=== PATIENT | female | born 1985 | race American Indian/Alaskan Native ===

== ENCOUNTER 2017-10-15 23:09 | Emergency (ER) | payer SELFPAY ==
[2017-10-16 00:09] VITALS: BP 116/79
== END 2017-10-16 02:08 | disposition left against medical advice (07) ==
LOC: ED 23:09
DX: M79.644 Pain in right finger(s) (principal); Z53.21 Procedure and treatment not carried out due to patient leaving prior to being seen by health care provider

== ENCOUNTER 2017-10-16 11:51 | Emergency (ER) | payer OTHER ==
[2017-10-16 12:27] VITALS: BP 127/70
--- NOTE | 2017-10-16 12:43 | Emergency Department Report ---
- General Chief Complaint: Laceration/Recheck/Suture Stated Complaint: RIGHT FINGER LACERATION Time Seen by Provider: 10/16/17 12:42 Source: patient, family Mode of arrival: Ambulatory Limitations: No Limitations - History of Present Illness Initial Comments: Patient here reports that she has cuts to her fingers on right hand to right fifth finger and right index finger. She said this is accidental and happened last night at 10:30 PM. She is reporting pain that is achy and sometimes throbbing at 6 out of 10. She says she did not take any medication she just kept the area clean. She says that there was a lot of bleeding at first but she said the bleeding has stopped. She denies any numbness or tingling to her right upper extremities and denies any radiation of pain proximally. Patient says she went to the emergency room when it happened but she the wait was too long so she left at 3 AM in the morning. Denies any fever or chills. -: Last night Time: 22:30 Extremity Location: Right: Hand (fifth finger and index finger lacerations) Place: home Patient Tetanus UTD: Yes Context: accidental Associated Symptoms: pain. denies: loss of feeling/numbness, suspect foreign body present, unable to move injured part, weakness followed by dizziness, nausea/vomiting, fever Treatments Prior to Arrival: bandage - Related Data Previous Rx's Medication Instructions Recorded Last Taken Type Bacitracin Zinc Oint [Antibiotic 20 applic TP BID 7 Days #1 tube 10/16/17 Unknown Rx Oint] Cephalexin [Keflex] 500 mg PO Q8HR 7 Days #21 cap 10/16/17 Unknown Rx Ibuprofen [Motrin] 600 mg PO Q8H PRN 5 Days #15 tablet 10/16/17 Unknown Rx Allergies Allergy/AdvReac Type Severity Reaction Status Date / Time latex Allergy Hives Verified 10/16/17 12:22 ED Review of Systems ROS: Stated complaint: RIGHT FINGER LACERATION Other details as noted in HPI Comment: All other systems reviewed and negative Constitutional: no symptoms reported ENT: denies: throat pain, congestion Respiratory: no symptoms reported Cardiovascular: denies: chest pain, palpitations, dyspnea on exertion, edema, syncope, paroxysmal nocturnal dyspnea, other Gastrointestinal: denies: abdominal pain, nausea, vomiting, diarrhea, constipation, hematemesis, melena, hematochezia Musculoskeletal: denies: back pain, arthralgia, myalgia Skin: other (lacerations to fingers of right hand) Neurological: denies: headache, weakness, numbness, paresthesias, confusion, abnormal gait, vertigo ED Past Medical Hx - Past Medical History Previous Medical History?: No - Surgical History Past Surgical History?: Yes Additional Surgical History: laporoscopy - Family History Family history: no significant - Social History Smoking Status: Current Every Day Smoker Substance Use Type: Alcohol, Marijuana - Medications Home Medications: Home Medications Medication Instructions Recorded Confirmed Last Taken Type Bacitracin Zinc Oint [Antibiotic 20 applic TP BID 7 Days #1 tube 10/16/17 Unknown Rx Oint] Cephalexin [Keflex] 500 mg PO Q8HR 7 Days #21 cap 10/16/17 Unknown Rx Ibuprofen [Motrin] 600 mg PO Q8H PRN 5 Days #15 tablet 10/16/17 Unknown Rx ED Physical Exam - General Limitations: No Limitations General appearance: alert, in no apparent distress - Head Head exam: Present: atraumatic, normocephalic, normal inspection - Eye Eye exam: Present: normal appearance, PERRL, EOMI. Absent: periorbital swelling , periorbital tenderness Pupils: Present: normal accommodation - ENT ENT exam: Present: normal exam, normal orophraynx, mucous membranes moist - Neck Neck exam: Present: normal inspection, full ROM, other (no cspine tenderness). Absent: tenderness, meningismus, lymphadenopathy, thyromegaly - Respiratory Respiratory exam: Present: normal lung sounds bilaterally, chest wall tenderness. Absent: respiratory distress, accessory muscle use - Cardiovascular Cardiovascular Exam: Present: regular rate, normal rhythm, normal heart sounds. Absent: systolic murmur, diastolic murmur - GI/Abdominal GI/Abdominal exam: Present: soft, normal bowel sounds. Absent: distended, tenderness, guarding, rebound, rigid, organomegaly, mass, bruit, pulsatile mass , hernia - Extremities Exam Extremities exam: Present: normal inspection, full ROM, tenderness ( right index finger and fifth digit), normal capillary refill, other (patient without clubbing, cyanosis or edema to extremities. No neurovascular compromise. +2 pulses to all extremities. Lacerations to right index finger and right fifth digit.). Absent: pedal edema, joint swelling, calf tenderness - Expanded Upper Extremity Exam Right General: Present: laceration (right index finger and fifth digit). Absent: normal inspection, abrasion, nail injury (#), foreign body, amputation, avulsion Shoulder Exam: Present: normal inspection, full ROM. Absent: tenderness, swelling, abrasion, laceration, ecchymosis, deformity, crepidus, dislocation, erythema, tenderness over AC joint Upper Arm exam: Present: normal inspection, full ROM. Absent: tenderness, swelling, abrasion, laceration, ecchymosis, deformity, crepidus, dislocation, erythema Elbow exam: Present: normal inspection, full ROM. Absent: tenderness, swelling , abrasion, laceration, ecchymosis, crepidus, dislocation, erythema, effusion, pain w/ pronation/supination, tenderness over radial head Forearm Wrist exam: Present: normal inspection, full ROM. Absent: tenderness, swelling, abrasion, laceration, ecchymosis, deformity, crepidus, dislocation, erythema, tenderness over anatomical snuff box, pain with axial thumb loading Hand Wrist exam: Present: full ROM, tenderness (right index finger and fifth digit), laceration (right index finger and fifth digit). Absent: normal inspection, swelling, abrasion, ecchymosis, deformity, crepidus, dislocation, erythema, amputation, nail avulsion, subungual hematoma Neuro motor exam: Present: wrist extension intact, thumb opposition intact, thumb IP flexion intact, thumb adduction intact, fingers 2-5 abduction intact Neurosensory exam: Present: 2-point discrimination, radial nerve intact, ulnar nerve intact, median nerve intact Vascular: Present: normal capillary refill, radial pulse, brachial pulse, ulnar pulse. Absent: vascular compromise, Pallo, pulse deficit radial art, pulse deficit ulnar art, pulse deficit brachial art - Back Exam Back exam: Present: normal inspection, full ROM. Absent: tenderness, CVA tenderness (R), CVA tenderness (L), muscle spasm, paraspinal tenderness, vertebral tenderness, rash noted - Neurological Exam Neurological exam: Present: alert, oriented X3, normal gait - Psychiatric Psychiatric exam: Present: normal affect, normal mood - Skin Skin exam: Present: warm, dry, normal color, other (laceration to right index finger and fifth digit). Absent: rash, erythema, urticaria, vesicles, petechiae , pallor, abrasion, ecchymosis - Expanded Skin Exam Expanded Type of lesion: Present: laceration (right index finger and fifth digit) Distribution of rash: RUE (right index finger and fifth digit) Description of rash: Present: size (lacerations are linear and approximately 0.25 cm in length and superficial), tenderness (the palpate to the right fifth digit and index finger.). Absent: erythematous, swelling, macular, papular, petechial, purpuic, urticarial, crusting, discharge, fluctuant, indurated ED Course Vital Signs 10/16/17 12:22 Temperature 98.1 F Pulse Rate 66 Respiratory 18 Rate Blood Pressure 127/70 O2 Sat by Pulse 100 Oximetry - Reevaluation(s) Reevaluation #1: 10/16/17 14:51 Patient given clindamycin 600 mg IM, Motrin 800 mg by mouth, Boostrix 0.5 mL IM and open wound cleansed with normal saline and triple antibiotic ointment placed a side followed by sterile gauze dressing. ED Medical Decision Making - Medical Decision Making ED course: Patient status post accidental laceration to fingers of her right hand to include right index finger distally and proximally and right fifth digit distally. Areas are tender to palpate without any signs of infection. Lacerations are very superficial and no foreign body noted. Laceration cleansed and flushed thoroughly. Areas cleansed with iodine and normal saline and irrigated with 350 mL of normal saline. Neosporin ointment placed light and sterile gauze dressing then. Patient is seeking emergency care initially after laceration but she says she left because she could not wait. Laceration is at approximately 14 hours since incident so therefore delayed treatment. I explained to patient that she needs to keep affected area clean and dry. I discussed with her that I'll put her on antibiotic ointment that she needs to clean area with peroxide and apply antibiotic ointment followed by gauze dressing. I also instructed her that I will place her in antibiotic to prevent infection. Patient voiced understanding discharge diagnosis and treatment plan. She was given clindamycin 600 mg IM in emergency room, Motrin 800 mg by mouth for pain, Boostrix 0.5 mL to update tetanus. Patient discharged home with prescription for Keflex, Motrin and bacitracin ointment. Critical care attestation.: If time is entered above; I have spent that time in minutes in the direct care of this critically ill patient, excluding procedure time. ED Disposition Clinical Impression: Arthralgia of right hand Laceration of hand with delay in treatment Qualifiers: Encounter type: initial encounter Laterality: right Qualified Code(s): S61.411A - Laceration without foreign body of right hand, initial encounter Disposition: TO HOME OR SELFCARE Is pt being admited?: No Does the pt Need Aspirin: No Condition: Stable Instructions: Finger Laceration (ED), Acute Wound Care (ED), Arthralgia (ED) Additional Instructions: Take antibiotic as prescribed Follow-up with your primary care physician in 3 days Keep affected area clean and dry. Followed discharge instruction on acute wound care . Please return to emergency room if you develop increasing redness, streaking, fever, difficulty moving in and the left forearm and increase in pain. Prescriptions: Bacitracin Zinc Oint [Antibiotic Oint] 20 applic TP BID 7 Days #1 tube Cephalexin [Keflex] 500 mg PO Q8HR 7 Days #21 cap Ibuprofen [Motrin] 600 mg PO Q8H PRN 5 Days #15 tablet PRN Reason: Pain Referrals: PRIMARY CARE, [Primary Care Provider] - 10/19/17 Forms: Accompanied Note, Work/School Release Form(ED)
[2017-10-16] MEDS ORDERED: CLEOCIN IM ONE (14:08)
[2017-10-16] MEDS ORDERED: BOOSTRIX IM ONE (14:08)
[2017-10-16] MEDS ORDERED: TRIPLE ANTIBIOTIC TP ONE ×3 (14:08→14:11)
[2017-10-16] MEDS ORDERED: MOTRIN PO ONE (14:08)
== END 2017-10-16 15:46 | disposition home or self-care (01) ==
LOC: ED 11:51
DX: S61.411A Laceration without foreign body of right hand, initial encounter (principal); F17.200 Nicotine dependence, unspecified, uncomplicated; F12.10 Cannabis abuse, uncomplicated; Z91.040 Latex allergy status; W45.8XXA Other foreign body or object entering through skin, initial encounter; Y93.89 Activity, other specified; Y99.8 Other external cause status; Y92.009 Unspecified place in unspecified non-institutional (private) residence as the place of occurrence of the external cause
CPT/HCPCS: 90471; 90715; 96372; A6250

== ENCOUNTER 2018-01-14 10:56 | Emergency (ER) | payer OTHER ==
[2018-01-14 11:05] VITALS: BP 118/70
[2018-01-14 11:35] LABS: Basophils % (Auto) 0.3 % (0.0-1.8); Eosinophils % (Auto) 0.5 % (0.0-4.3); Hemoglobin 12.5 gm/dl (10.1-14.3); Lymphocytes # (Auto) 3.5 K/mm3 (1.2-5.4); Lymphocytes % (Auto) 51.8 % (13.4-35.0); Mean Corpuscular HGB Conc 33 % (30-34); Mean Corpuscular Hemoglobin 30 pg (28-32); Mean Corpuscular Volume 91 fl (79-97); Monocytes # (Auto) 0.7 K/mm3 (0.0-0.8); Monocytes % (Auto) 10.8 % (0.0-7.3); Platelet Count 358 K/mm3 (140-440); Red Blood Count 4.18 M/mm3 (3.65-5.03); Red Cell Distribution Width 14.3 % (13.2-15.2)
[2018-01-14 11:46] LABS: Bacteria,Urine 1+ /HPF (Negative); Bilirubin,Urine NEG (Negative); Blood,Urine LG (Negative); Color,Urine Yellow (Yellow); Mucus,Urine 3+ /HPF; Protein,Urine <15 mg/dL mg/dL (Negative); Urobilinogen,Urine < 2.0 mg/dL (<2.0)
--- NOTE | 2018-01-14 12:41 | Emergency Department Report ---
ED Female HPI - General Chief complaint: Vaginal Bleeding Stated complaint: ABD PAIN Time Seen by Provider: 01/14/18 15:06 Source: patient, family Mode of arrival: Ambulatory Limitations: No Limitations - History of Present Illness Initial comments: Patient here complaining of vaginal bleeding in that started with moderate amount of bleeding without any clots and started spotting. She says she began her cycle on 12/31 2017 and is still bleeding with intermittent cramping. Denies any nausea or vomiting. Denies any back pain. Denies any urinary frequency urgency or burning. Pain is located to the left lower quadrant of abdomen. She has PCOs. No [id number] medication taken. Nothing makes pain better and nothing makes it worse. MD Complaint: vaginal bleeding, pelvic pain (pelvic cramping) Onset/Timin -: week(s) Location: suprapubic Radiation: non-radiating Severity: moderate Severity scale (0 -10): 6 Quality: cramping Consistency: intermittent Improves with: none Worsens with: none Are you Now?: No Last Menstrual Period: 12/31/17 EDC: 10/07/18 Associated Symptoms: vaginal bleeding, abdominal pain. denies: vaginal discharge, nausea/vomiting, fever/chills, headaches, loss of appetite, dysuria, hematuria, rash, seizure, shortness of breath, syncope, weakness - Related Data Sexually active: Yes Previous Rx's Medication Instructions Recorded Last Taken Type Bacitracin Zinc Oint [Antibiotic 20 applic TP BID 7 Days #1 tube 10/16/17 Unknown Rx Oint] Cephalexin [Keflex] 500 mg PO Q8HR 7 Days #21 cap 10/16/17 Unknown Rx Ibuprofen [Motrin] 600 mg PO Q8H PRN 5 Days #15 tablet 10/16/17 Unknown Rx Nitrofurantoin Monohyd/M-Cryst 100 mg PO Q12H 3 Days #6 capsule 01/14/18 Unknown Rx [Macrobid 100 mg Capsule] Allergies Allergy/AdvReac Type Severity Reaction Status Date / Time latex Allergy Hives Verified 01/14/18 11:05 ED Review of Systems ROS: Stated complaint: ABD PAIN Other details as noted in HPI Comment: All other systems reviewed and negative Constitutional: no symptoms reported Eyes: denies: eye pain, vision change ENT: denies: throat pain Respiratory: no symptoms reported Cardiovascular: denies: chest pain, palpitations, dyspnea on exertion, orthopnea , edema, syncope, paroxysmal nocturnal dyspnea Gastrointestinal: abdominal pain. denies: nausea, vomiting, diarrhea, constipation, hematemesis, melena, hematochezia Genitourinary: hematuria, other (vaginal bleeding). denies: urgency, dysuria, frequency, abnormal menses Musculoskeletal: denies: back pain, joint swelling, arthralgia, myalgia Skin: denies: rash Neurological: denies: headache, weakness, numbness, paresthesias, confusion ED Past Medical Hx - Past Medical History Previous Medical History?: Yes Additional medical history: PCOS - Surgical History Past Surgical History?: Yes Additional Surgical History: laporoscopy - Family History Family history: hypertension - Social History Smoking Status: Current Every Day Smoker Substance Use Type: Marijuana - Medications Home Medications: Home Medications Medication Instructions Recorded Confirmed Last Taken Type Bacitracin Zinc Oint [Antibiotic 20 applic TP BID 7 Days #1 tube 10/16/17 Unknown Rx Oint] Cephalexin [Keflex] 500 mg PO Q8HR 7 Days #21 cap 10/16/17 Unknown Rx Ibuprofen [Motrin] 600 mg PO Q8H PRN 5 Days #15 tablet 10/16/17 Unknown Rx Nitrofurantoin Monohyd/M-Cryst 100 mg PO Q12H 3 Days #6 capsule 01/14/18 Unknown Rx [Macrobid 100 mg Capsule] ED Physical Exam - General Limitations: No Limitations General appearance: alert, in no apparent distress - Head Head exam: Present: atraumatic, normocephalic, normal inspection - Eye Eye exam: Present: normal appearance, PERRL, EOMI. Absent: nystagmus, periorbital swelling, periorbital tenderness Pupils: Present: normal accommodation - ENT ENT exam: Present: normal exam, normal orophraynx, mucous membranes moist - Neck Neck exam: Present: normal inspection, full ROM. Absent: tenderness, meningismus, lymphadenopathy, thyromegaly - Respiratory Respiratory exam: Present: normal lung sounds bilaterally. Absent: respiratory distress, chest wall tenderness, accessory muscle use - Cardiovascular Cardiovascular Exam: Present: regular rate, normal rhythm, normal heart sounds. Absent: systolic murmur, diastolic murmur - GI/Abdominal GI/Abdominal exam: Present: soft, normal bowel sounds. Absent: distended, tenderness, guarding, rebound, rigid, organomegaly, mass, bruit, pulsatile mass , hernia - Extremities Exam Extremities exam: Present: normal inspection, full ROM, normal capillary refill , other (no clubbing, cyanosis or edema. +2 pulses to all extremities and no neurovascular compromise). Absent: tenderness, pedal edema, joint swelling, calf tenderness - Back Exam Back exam: Present: normal inspection, full ROM, other (ambulates without any difficulties). Absent: tenderness, CVA tenderness (R), CVA tenderness (L), muscle spasm, paraspinal tenderness, vertebral tenderness, rash noted - Neurological Exam Neurological exam: Present: alert, oriented X3, normal gait, reflexes normal. Absent: motor sensory deficit - Psychiatric Psychiatric exam: Present: normal affect, normal mood - Skin Skin exam: Present: warm, dry, intact, normal color. Absent: rash ED Course Vital Signs 01/14/18 11:01 Temperature 98.1 F Pulse Rate 83 Respiratory 16 Rate Blood Pressure 118/70 O2 Sat by Pulse 99 Oximetry - Reevaluation(s) Reevaluation #1: 01/14/18 14:35 Patient remained stable throughout ED course. She says she has been no vaginal bleeding only when she wipes she sees small amount of blood. Reevaluation #2: 01/14/18 16:35 Ultrasound reports reveal patient with no intrauterine . Possible fibroid and uterus. Head her generously complex cystic mass in the right ovary and mass in the left ovary. Both demonstrate peripheral flow. Findings may represent ectopic . Differential diagnosis include corpus luteal cyst of , hemorrhagic 6 or cystic tumor. Reevaluation #3: 01/14/18 17:38 Patient seen and evaluated by Dr. 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 He works for my [employer]. Dr. Hand reports that there is minimal possibility the patient has ectopic and that he will call patient tomorrow to schedule an appointment for follow-up visit. Patient is nontender to palpate abdomen. Her serum quantitative hCG is at 1565 ED Medical Decision Making - Lab Data Result diagrams: 01/14/18 11:09 Lab Results 01/14/18 01/14/18 01/14/18 Range/Units 11:09 11:09 11:09 WBC 6.8 (4.5-11.0) K/mm3 RBC 4.18 (3.65-5.03) M/mm3 Hgb 12.5 (10.1-14.3) gm/dl Hct 38.0 (30.3-42.9) % MCV 91 (79-97) fl MCH 30 (28-32) pg MCHC 33 (30-34) % RDW 14.3 (13.2-15.2) % Plt Count 358 (140-440) K/mm3 Lymph % (Auto) 51.8 H (13.4-35.0) % [place] % (Auto) 10.8 H (0.0-7.3) % Eos % (Auto) 0.5 (0.0-4.3) % Baso % (Auto) 0.3 (0.0-1.8) % Lymph # 3.5 (1.2-5.4) K/mm3 [place] # 0.7 (0.0-0.8) K/mm3 Eos # 0.0 (0.0-0.4) K/mm3 Baso # 0.0 (0.0-0.1) K/mm3 Seg Neutrophils % 36.6 L (40.0-70.0) % Seg Neutrophils # 2.5 (1.8-7.7) K/mm3 HCG, Quant 1565 H (0-4) mIU/mL Urine Color (Yellow) Urine Turbidity (Clear) Urine pH (5.0-7.0) Ur Specific [place] (1.003-1.030) Urine Protein (Negative) mg/dL Urine Glucose (UA) (Negative) mg/dL Urine Ketones (Negative) mg/dL Urine Blood (Negative) Urine Nitrite (Negative) Urine Bilirubin (Negative) Urine Urobilinogen (<2.0) mg/dL Ur Leukocyte Esterase (Negative) Urine WBC (Auto) (0.0-6.0) /HPF Urine RBC (Auto) (0.0-6.0) /HPF U Epithel Cells (Auto) (0-13.0) /HPF Urine Bacteria (Auto) (Negative) /HPF Urine Mucus /HPF Blood Type A POSITIVE Antibody Screen Negative 01/14/18 Range/Units Unknown WBC (4.5-11.0) K/mm3 RBC (3.65-5.03) M/mm3 Hgb (10.1-14.3) gm/dl Hct (30.3-42.9) % MCV (79-97) fl MCH (28-32) pg MCHC (30-34) % RDW (13.2-15.2) % Plt Count (140-440) K/mm3 Lymph % (Auto) (13.4-35.0) % [place] % (Auto) (0.0-7.3) % Eos % (Auto) (0.0-4.3) % Baso % (Auto) (0.0-1.8) % Lymph # (1.2-5.4) K/mm3 [place] # (0.0-0.8) K/mm3 Eos # (0.0-0.4) K/mm3 Baso # (0.0-0.1) K/mm3 Seg Neutrophils % (40.0-70.0) % Seg Neutrophils # (1.8-7.7) K/mm3 HCG, Quant (0-4) mIU/mL Urine Color Yellow (Yellow) Urine Turbidity Clear (Clear) Urine pH 5.0 (5.0-7.0) Ur Specific [place] 1.029 (1.003-1.030) Urine Protein <15 mg/dl (Negative) mg/dL Urine Glucose (UA) Neg (Negative) mg/dL Urine Ketones Neg (Negative) mg/dL Urine Blood Lg (Negative) Urine Nitrite Neg (Negative) Urine Bilirubin Neg (Negative) Urine Urobilinogen < 2.0 (<2.0) mg/dL Ur Leukocyte Esterase Neg (Negative) Urine WBC (Auto) 1.0 (0.0-6.0) /HPF Urine RBC (Auto) 14.0 (0.0-6.0) /HPF U Epithel Cells (Auto) 6.0 (0-13.0) /HPF Urine Bacteria (Auto) 1+ (Negative) /HPF Urine Mucus 3+ /HPF Blood Type Antibody Screen Urine culture pending - Radiology Data Radiology results: report reviewed Ultrasound OB transvaginal reveals patient with possible fibroid uterus. No intrauterine . Heterogenicity complex cystic mass in the right ovary and mass in the left ovary. Both demonstrate peripheral flow. Findings may represent ectopic . - Medical Decision Making ED course: Patient here reports that she has pelvic cramping and vaginal bleeding. She says she started her period and 12/31 2017 and she's been bleeding on and off. Now she is down to spotting. Patient found to have quadrant greater than 1500. She was surprised that she is . She is complaining of pelvic pain on and off but none at present. Ultrasound OB reveal patient with no intrauterine , uterine fibroid, bilateral adnexal mass cyst versus ectopic could not be ruled out by radiologist therefore Dr. 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 Patient and examined patient and he thinks it's more of ovarian cysts that it is the mass and the patient is in early . Patient is stable she has very minimal vaginal bleeding and reports that she always sees blood when she wipes after urinating. She was instructed by Dr. Hand that he will call her in the morning to schedule an appointment for her to see him in the office. Patient voiced understanding discharge diagnosis and treatment plan and I discussed with her that she needs to return to the emergency room if she has increase in bleeding and abdominal pain and she voiced understanding. Patient also with bacteria in her urine and she was discharged home with prescription for Macrobid. I discussed with her that she needs to increase her fluid intake. Patient is stable and in no acute distress. Discharge home in no acute distress. Critical care attestation.: If time is entered above; I have spent that time in minutes in the direct care of this critically ill patient, excluding procedure time. ED Disposition Clinical Impression: Threatened miscarriage in early , Mass, ovarian, Vaginal bleeding in , Bacteria in urine Abdominal pain Qualifiers: Abdominal location: lower abdomen, unspecified Qualified Code(s): R10.30 - Lower abdominal pain, unspecified Disposition: - TO HOME OR SELFCARE Is pt being admited?: No Does the pt Need Aspirin: No Condition: Stable Instructions: Threatened Miscarriage (ED), Ovarian Cyst (ED), Uterine Fibroids (ED), Urinary Tract Infection in Women (ED), Abdominal Pain in (ED) Additional Instructions: The ultrasound shows that you have cystic mass in the right ovary and mass in the left ovary. You will need to be evaluated further by [employer]. Please be on the lookout for Dr. Hand who saw you today. He will be calling you to schedule an appointment for office visit. He will be calling you tomorrow so please the snout for his phone call. If you develop, increased bleeding and increased abdominal pain, please return to the emergency room. Increase your fluid intake Your urine showed that he had 1+ bacteria so I will treat you for small bladder infection with Macrobid. Prescriptions: Nitrofurantoin Monohyd/M-Cryst [Macrobid 100 mg Capsule] 100 mg PO Q12H 3 Days # 6 capsule Referrals: JORDAN HAND MD [Staff Physician] - 01/15/18 Forms: Work/School Release Form(ED)
--- NOTE | 2018-01-14 15:00 | Ultrasound Report ---
FINAL REPORT EXAM: US OB < = 14 WEEKS FETUS HISTORY: abnl vag bleeding. quant 1500 TECHNIQUE: Transabdominal and transvaginal OB ultrasound. PRIORS: None currently available. FINDINGS: Uterus: 7.5 x 4.1 x 4.7. Heterogeneous. Endometrium measures 11 mm. Hypoechoic lesion in the posterior fundus measuring 7.3 mm may represent a fibroid. No gestational sac identified. Right ovary: 3.4 x 2.4 x 3.3 cm. Complex lesion in the right ovary measures 1.6 cm. Peripheral flow identified. Left Ovary: 3.0 x 2.0 x 2.8 cm. Solid mass measuring 2.4 cm. Peripheral flow noted. Adnexal: Unremarkable. No free fluid. IMPRESSION: Heterogeneously complex cystic mass in the right ovary and mass in the left ovary. Both demonstrate peripheral flow. Findings may represent ectopic . Differential diagnosis includes corpus luteal cyst of , hemorrhagic cyst, or cystic tumor. Possible fibroid in uterus. No intrauterine .
--- NOTE | 2018-01-14 17:08 | Consultation ---
History of Present Illness Consult date: 01/14/18 Requesting physician: TAMMI AYALA Reason for consult: early problem History of present illness: This is a 32-year-old black female para 0 last menstrual period was 11/24/2017. Patient presented to emergency room with complaints of several days of pelvic cramping and spotting. Patient with a history of polycystic ovarian syndrome during a workup in the ER notes have a positive test. Pelvic ultrasound revealed thickened endometrial lining no intrauterine also a right cystic ovarian mass consistent with corpus luteal cysts of cannot rule out ectopic . Past History Past Medical History: other (polycystic ovarian disease) Past Surgical History: [employer]IST/uterine surgery (operative laparoscopy with possible ovarian drilling and cystectomy "clean out my tubes") [employer] History: denies: abnormal PAP smear Medications and Allergies Allergies Allergy/AdvReac Type Severity Reaction Status Date / Time latex Allergy Hives Verified 01/14/18 11:05 Home Medications Medication Instructions Recorded Confirmed Last Taken Type Bacitracin Zinc Oint [Antibiotic 20 applic TP BID 7 Days #1 tube 10/16/17 Unknown Rx Oint] Cephalexin [Keflex] 500 mg PO Q8HR 7 Days #21 cap 10/16/17 Unknown Rx Ibuprofen [Motrin] 600 mg PO Q8H PRN 5 Days #15 tablet 10/16/17 Unknown Rx Nitrofurantoin Monohyd/M-Cryst 100 mg PO Q12H 3 Days #6 capsule 01/14/18 Unknown Rx [Macrobid 100 mg Capsule] - Vital Signs Vital signs: Vital Signs Temp Pulse Resp BP Pulse Ox 98.1 F 83 16 118/70 99 01/14/18 11:01 01/14/18 11:01 01/14/18 11:01 01/14/18 11:01 01/14/18 11:01 Temp Pulse Resp BP Pulse Ox 98.1 F 83 16 118/70 99 01/14/18 11:01 01/14/18 11:01 01/14/18 11:01 01/14/18 11:01 01/14/18 11:01 - Physical Exam Breasts: Positive: deferred Cardiovascular: Regular rate Abdomen: Positive: normal appearance, soft. Negative: tenderness Genitourinary (Female): Positive: normal external genitalia Extremities: Positive: normal Results Result Diagrams: 01/14/18 11:09 Abnormal lab results 01/14/18 01/14/18 Range/Units 11:09 11:09 Lymph % (Auto) 51.8 H (13.4-35.0) % [place] % (Auto) 10.8 H (0.0-7.3) % Seg Neutrophils % 36.6 L (40.0-70.0) % HCG, Quant 1565 H (0-4) mIU/mL All other labs normal. Assessment and Plan - Patient Problems (1) Threatened miscarriage in early Status: Acute Plan to address problem: Discussed with patient differential diagnosis of early intrauterine with corpus luteal cyst versus ectopic . Patient exam is benign without tenderness consistent with possible threatened . Discussed with the patient the possibility made for observation and repeat abdominal pelvic exams and down the need for repeat beta-hCG while in hospital versus outpatient observation with monitoring symptoms of pain and vaginal bleeding. Patient desires outpatient observation. Gave patient's my number to call if she has any increase in pain or bleeding throughout the night were actually called to try to arrange a follow-up appointment in my office on tomorrow. (2) Vaginal bleeding in Status: Acute Plan to address problem: Patient blood type is A+
== END 2018-01-14 17:57 | disposition home or self-care (01) ==
LOC: ED 10:56
DX: O20.0 Threatened abortion (principal); R82.71 Bacteriuria; O99.331 Smoking (tobacco) complicating pregnancy, first trimester; O99.341 Other mental disorders complicating pregnancy, first trimester; I10 Essential (primary) hypertension; F12.10 Cannabis abuse, uncomplicated; Z91.040 Latex allergy status; Z3A.14 14 weeks gestation of pregnancy
CPT/HCPCS: 36415; 76801; 76817; 81001; 84702; 85025; 86850; 86900; 86901; 87086